=== PATIENT | male | born 1945 | race Caucasian/White ===

== ENCOUNTER 2019-02-03 15:33 | Emergency (ER) | payer MEDICARE, BC ==
[~2019-02-03] VITALS: Ht 172.7 cm; Wt 77.1 kg
[~2019-02-03 15:33] MED LIST: COLCHICINE0.6 M1 PO; FINASTERIDE5 MG PO; OMEPRAZOLE20 MG PO; TAMSULOSIN HCL0.4 MG PO
--- NOTE | 2019-02-04 21:33 | EKG ---
[facility] [address] [place], [place] [address] Signed Sinus tachycardia Inferior infarct , age undetermined Abnormal ECG When compared with ECG of 31-MAY-2016 06:01, No significant change was found Confirmed by ILDEFONSO SERRANO MD ([id number]) on 02/04/2019 9:33:11 PM Electronically Signed By: ILDEFONSO SERRANO MD 02/04/19 2133 PATIENT NAME: DA SAMPSON Rey Electrocardiogram DATE OF : 45 PHYSICIAN: ILDEFONSO SERRANO MD REPORT #: [id number] REPORT IS CONFIDENTIAL AND NOT TO BE RELEASED WITHOUT AUTHORIZATION
== END 2019-02-03 18:07 | disposition home or self-care (01) ==
LOC: ED 15:33
DX: D69.2 Other nonthrombocytopenic purpura (principal); D64.9 Anemia, unspecified; I10 Essential (primary) hypertension; K21.9 Gastro-esophageal reflux disease without esophagitis; Z85.72 Personal history of non-Hodgkin lymphomas; Z90.89 Acquired absence of other organs; Z79.899 Other long term (current) drug therapy
CPT/HCPCS: 80053; 85025; 93005; 93010; 96360; 96361; 99283-25; J7030